=== PATIENT | female | born 1995 | race Caucasian/White ===

== ENCOUNTER 2020-08-26 11:55 | Emergency (ER) | payer OTHER, SELFPAY ==
--- NOTE | ~2020-08-26 | US_ITS ---
EXAMINATION: US venous doppler UE DATE: 08/26/2020 13:32 INDICATION: Left wrist and hand pain TECHNIQUE: Grayscale ultrasound images without and with compression and Doppler ultrasound images of the left upper extremity veins were obtained. COMPARISON: None. FINDINGS: The left internal jugular vein, subclavian vein, axillary vein, brachial veins, basilic vein, cephali c vein, radial vein, and ulnar vein are patent. There is thrombosis of a superficial vein in the area of clinical concern. IMPRESSION: 1. Superficial venous thrombosis in the area of clinical concern. No evidence of deep venous thrombos is. Reviewed, dictated and finalized at location A. PIECE CHECKER IMPRESSION: 1. Superficial venous thrombosis in the area of clinical concern. No evidence o f deep venous thrombosis.
[2020-08-26 11:57] VITALS: BP 113/96; PULSE 106; RESP 20; TEMP 36.6; O2SAT 100
--- NOTE | 2020-08-26 14:27 | ED.EXTPRO ---
HPI - Extremity Problem General Chief complaint: Extremity Problem,Nontraumatic Stated complaint: L ARM SWELLING, ?IV INFILTRATION Time Seen by Provider: 08/26/20 12:17 Source: patient Mode of arrival: ambulatory Limitations: no limitations History of Present Illness HPI Narrative: Patient is a 24-year-old female who presents to emergency department for evaluation of left wrist pain at the IV site she had in place noting that she has noticed that it feels more firm and has some tingling in the hand patient otherwise denies other complaints presents in no distress has not taken anything for her symptoms and has not been seen for this complaint Related Data Home Medications Medication Instructions Recorded Confirmed No Home Medications 08/26/20 08/26/20 Allergies Allergy/AdvReac Type Severity Reaction Status Date / Time No Known Allergies Allergy Verified 08/26/20 12:15 Review of Systems Review of Systems: All systems reviewed & are unremarkable except as noted in HPI and below PMFSH Family History Family History (Updated 05/05/19 @ 13:58 by DOCTOR UNKNOWN) Mother Hypertension Father Hypertension Family history of malignant neoplasm of kidney Other Family history of malignant neoplasm of breast Family history of malignant neoplasm of ovary Social History Social History Smoking status: Never smoker Alcohol intake: current Gender identity (if verbalized by the patient): Female Exam Narrative: Exam Narrative: GENERAL: Well-appearing, well-nourished, and in no acute distress. HEAD: Normocephalic, atraumatic. EYES: PERRLA and EOMI. ENT: Nares clear, no rhinorrhea or epistaxis. Mucous membranes moist. EXTREMITIES: Normal range of motion. No edema. SKIN: Warm, dry, no rash. Small palpable area at the IV site no other deformities of the extremity NEURO: No focal deficits. Alert and oriented x3. Neurovascularly intact. Capillary refill less than 2-second PSYCH: Normal mood and affect. Course Course Emergency Course: Patient evaluated found to have superficial thrombus will be discharged home for further evaluation on an outpatient basis Vital Signs Vital signs: Vital Signs Temperature 97.8 F 08/26/20 11:57 Pulse Rate 106 H 08/26/20 11:57 Respiratory Rate 20 08/26/20 11:57 Blood Pressure 113/96 H 08/26/20 11:57 Pulse Oximetry 100 08/26/20 11:57 Temperature 97.8 F 08/26/20 11:57 Pulse Rate 106 H 08/26/20 11:57 Respiratory Rate 20 08/26/20 11:57 Blood Pressure 113/96 H 08/26/20 11:57 Pulse Oximetry 100 08/26/20 11:57 MDM - Extremity (Nontraumatic) MDM Narrative Medical decision making narrative: Patients injury or pain is consistent with musculoskeletal etiology. No signs of neurological or vascular compromise on exam. Compartments and tisues are soft without signs of compartment syndrome. Pain is felt appropriate for further evaluation on an outpatient basis. Imaging Data Radiologist's impression: ITS Impressions Venous Doppler Study 08/26/20 13:34 IMPRESSION: 1. Superficial venous thrombosis in the area of clinical concern. No evidence of deep venous thrombosis. Discharge Plan Discharge Clinical Impression: Superficial thrombophlebitis Patient Disposition: Home, Self-Care Condition: Stable Instructions: Antibiotic Form, Superficial Thrombophlebitis (ED) Additional Instructions: Follow up with your primary care provider within 1-2 days to set up for reevaluation. Go to ER for shortness of breath, difficulty breathing, chest pain, fever/chills, weakness, nauseau/vomitting, any increase in redness swelling pain or loss of feeling or function in the extremity etc. or any other concerns. Take any prescribed medications as directed. If you do not have a drug allergy to tylenol or motrin and can tolerate it then take tylenol or motrin as needed for discomfort/pain.
[2020-08-26 14:34] VITALS: BP 122/78; PULSE 80; RESP 18; O2SAT 99
== END 2020-08-26 14:35 | disposition home or self-care (01) ==
PROVIDERS: Emergency Provider Family Medicine; PCP Family Medicine
DX: I80.8 Phlebitis and thrombophlebitis of other sites (principal)
CPT/HCPCS: 93971; 99284